=== PATIENT | female | born 1980 | race Caucasian/White ===

== ENCOUNTER 2017-08-07 16:07 | Emergency (ER) | payer OTHER, MEDICAID ==
[2017-08-07 16:26] VITALS: RESP 16; TEMP 99.3; O2SAT 96
--- NOTE | 2017-08-07 16:46 | EDPHY ---
H & P Stated Complaint: htn, palpitations Time Seen by Provider: 08/07/17 16:46 HPI/ROS: CHIEF COMPLAINT: Recurrent palpitations HISTORY OF PRESENT ILLNESS: The patient has a history of SVT status post ablation at the [facility] [place] presents the emergency department with complaints of palpitations over the past week. The patient did have a Holter monitor performed last week which she just sent in. She previously had been on metoprolol. The patient denies any asymmetric calf pain or swelling. The patient describes brief episodes of a recurrent tachycardia. She currently is taking hydrochlorothiazide for hypertension. She denies any complaints of fever , cough or congestion. The patient had been seen by Dr. Alvarenga at [facility]. REVIEW OF SYSTEMS: A comprehensive 10 point review of systems is otherwise negative aside from elements mentioned in the history of present illness. Source: Patient Exam Limitations: No limitations - Personal History LMP (Females 10-55): 8-14 Days Ago Current Tetanus/Diphtheria Vaccine: Yes Current Tetanus Diphtheria and Acellular Pertussis (TDAP): Yes Tetanus Vaccine Date: 2015 - Medical/Surgical History Hx Asthma: No Hx Chronic Respiratory Disease: No Hx Diabetes: No Hx Cardiac Disease: Yes Hx Renal Disease: No Hx Cirrhosis: No Hx Alcoholism: No Hx HIV/AIDS: No Hx Splenectomy or Spleen Trauma: No Other PMH: "kidney reflux" as an ; chronic UTIs as child, but since no problems. Takes normal meds and no kidney issues or lack of renal function SVT, SVT ablation 05/28. Migraines in past - no meds or aura, not in - Social History Smoking Status: Never smoked - Physical Exam Exam: General Appearance: Alert, no distress Eyes: Pupils equal and round no pallor or injection ENT, Mouth: Mucous membranes moist Respiratory: There are no retractions, lungs are clear to auscultation Cardiovascular: Regular rate and rhythm Gastrointestinal: Abdomen is soft and nontender, no masses, bowel sounds normal Neurological: A&O, normal motor function, normal sensory exam, normal cranial nerves Skin: Warm and dry, no rashes Musculoskeletal: Neck is supple nontender Extremities: symmetrical, full range of motion Constitutional: Initial Vital Signs Temperature (C) 37.4 C 08/07/17 16:23 Heart Rate 118 H 08/07/17 16:23 Respiratory Rate 16 08/07/17 16:23 Blood Pressure 157/123 H 08/07/17 16:23 O2 Sat (%) 96 08/07/17 16:23 O2 Delivery Mode Room Air Allergies/Adverse Reactions: No Known Allergies Allergy (Unverified 08/07/17 16:22) Home Medications: Medication Instructions Recorded Ibuprofen [Motrin (*)] 600 mg PO TID PRN 05/21/17 HCTZ (*) 08/07/17 Metoprolol Tartrate [Lopressor 25 25 mg PO BID #60 tab 08/07/17 mg (*)] Medical Decision Making - Diagnostics EKG Interpretation: EKG: Complete interpretation has been separately recorded in the [facility] archive. Summary impression: Sinus rhythm, PACs ED Course/Re-evaluation: The patient presents the emergency department with recurrent palpitations. She is noted to have a single PAC on her EKG. The patient was noted to have a narrow complex atrial tachycardia current sporadically on her monitor in the ED. The patient has been provided a copy of her EKG and rhythm strip in the emergency department. The patient's laboratory studies are within normal limits. I did shelton Guevara from Cardiology. She will be restarted on her metoprolol. Differential Diagnosis: Differential diagnosis considered includes SVT, atrial arrhythmia, ventricular tachycardia, atrial fibrillation - Data Points Laboratory Results: Laboratory Results 08/07/17 16:55 08/07/17 16:55 08/07/17 08/07/17 16:55 16:55 WBC 8.80 10^3/uL 10^3/uL (3.80-9.50) RBC 5.19 10^6/uL 10^6/uL (4.18-5.33) Hgb 15.0 g/dL g/dL (12.6-16.3) Hct 42.0 % % (38.0-47.0) MCV 80.9 fL L fL (81.5-99.8) MCH 28.9 pg pg (27.9-34.1) MCHC 35.7 g/dL g/dL (32.4-36.7) RDW 12.8 % % (11.5-15.2) Plt Count 268 10^3/uL 10^3/uL (150-400) MPV 9.8 fL fL (8.7-11.7) Neut % (Auto) 50.8 % % (39.3-74.2) Lymph % (Auto) 40.2 % % (15.0-45.0) [place] % (Auto) 6.8 % % (4.5-13.0) Eos % (Auto) 1.1 % % (0.6-7.6) Baso % (Auto) 0.5 % % (0.3-1.7) Nucleat RBC Rel Count 0.0 % % (0.0-0.2) Absolute Neuts (auto) 4.47 10^3/uL 10^3/uL (1.70-6.50) Absolute Lymphs (auto) 3.54 10^3/uL H 10^3/uL (1.00-3.00) Absolute Monos (auto) 0.60 10^3/uL 10^3/uL (0.30-0.80) Absolute Eos (auto) 0.10 10^3/uL 10^3/uL (0.03-0.40) Absolute Basos (auto) 0.04 10^3/uL 10^3/uL (0.02-0.10) Absolute Nucleated RBC 0.00 10^3/uL 10^3/uL (0-0.01) Immature Gran % 0.6 % % (0.0-1.1) Immature Gran # 0.05 10^3/uL 10^3/uL (0.00-0.10) Sodium 139 mEq/L mEq/L (135-145) Potassium 3.8 mEq/L mEq/L (3.5-5.2) Chloride 103 mEq/L mEq/L (97-110) Carbon Dioxide 21 mEq/l L mEq/l (22-31) Anion Gap 15 mEq/L mEq/L (8-16) BUN 16 mg/dL mg/dL (7-23) Creatinine 0.9 mg/dL mg/dL (0.6-1.0) Estimated GFR > 60 Glucose 95 mg/dL mg/dL (70-100) Calcium 9.7 mg/dL mg/dL (8.5-10.4) Departure - Departure Disposition: Home, Routine, Self-Care Clinical Impression: Atrial tachycardia Condition: Good Instructions: Atrial Tachycardia (ED) Additional Instructions: 1. I recommend resuming metoprolol 25 mg twice daily. 2. Please schedule a follow-up appointment with Dr. Alvarenga. 3. Return to the ED for severe tachycardia, chest pain, worsening symptoms or other concerns. Referrals: Christina Loo MD [Primary Care Provider] - As per Instructions Prescriptions: Metoprolol Tartrate [Lopressor 25 mg (*)] 25 mg PO BID #60 tab
--- NOTE | 2017-08-07 16:50 | CPEKG ---
Heart Rate: 96 RR Interval: 625 P-R Interval: 140 QRSD Interval: 92 QT Interval: 352 QTC Interval: 445 P [place]: 42 QRS [place]: 14 T Wave [place]: 33 EKG Severity - OTHERWISE NORMAL ECG - EKG Impression: SINUS TACHYCARDIA EKG Impression: ATRIAL PREMATURE COMPLEX Electronically Signed By: Micah Sotelo 07-Aug-2017 20:19:38
[2017-08-07 17:23] LABS: PLATELET COUNT 268 10^3/uL (150-400)
[2017-08-07 18:00] VITALS: BP 141/103; PULSE 93
== END 2017-08-07 17:59 | disposition home or self-care (01) ==
DX: I47.1 Supraventricular tachycardia (principal)